=== PATIENT | male | born 1960 | race Caucasian/White ===

== ENCOUNTER 2023-08-06 13:38 | Emergency (ER) | payer MEDICAID, OTHER ==
[~2023-08-06] VITALS: Ht 188 cm; Wt 88.8 kg
[~2023-08-06 13:38] MED LIST: TEG100T PO
--- NOTE | 2023-08-06 20:37 | NUR ---
C-COLLAR PLACED BY TRIAGE NURSE
--- NOTE | 2023-08-06 20:52 | NUR ---
I have reviewed and agree with all interventions, assessments performed and documented by maria isabel KNIGHT
[2023-08-06] MEDS ORDERED: ketorolac trometh. 30mg/ml inj. IM ONE (21:05)
[2023-08-06 21:29] VITALS: BP 123/81; PULSE 72; RESP 18; TEMP 97.6; O2SAT 98
== END 2023-08-06 21:32 | disposition home or self-care (01) ==
LOC: ER 13:39
DX: S16.1XXA Strain of muscle, fascia and tendon at neck level, initial encounter (principal); F12.90 Cannabis use, unspecified, uncomplicated; Z88.8 Allergy status to other drugs, medicaments and biological substances; V49.9XXA Car occupant (driver) (passenger) injured in unspecified traffic accident, initial encounter; Y93.89 Activity, other specified; Y92.89 Other specified places as the place of occurrence of the external cause; Y99.8 Other external cause status
CPT/HCPCS: 72040; 99283; L0172